=== PATIENT | female | born 1960 | race Caucasian/White ===

== ENCOUNTER 2019-12-19 11:23 | Inpatient (IN) | payer BC ==
[~2019-12-19] VITALS: Ht 162.6 cm; Wt 87.3 kg
[~2019-12-19 11:23] MED LIST: ATIVAN0.5 MG PO; CYCLOBENZAPRINE10 MG PO; Carafate1 GM PO; MAXALT10 MG PO; Motrin,Rufen800 MG PO; NEXIUM40 MG PO; NORCO 5-325 TA1 EACH PO; ROXICET 5-3251 EACH PO
[2019-12-19 11:37] VITALS: BP 151/78
[2019-12-19 12:20] LABS: BASO # 0.1 10*3/uL (0.0-0.1); BASO % 0.5 % (0.0-1.0); EOS # 0.2 10*3/uL (0.0-0.4); EOS % 2.2 % (1.0-4.0); LYMPH # 1.5 10*3/uL (1.3-4.4); LYMPH % 16.2 % (27.0-41.0); MEAN CELL VOLUME 88.7 fl (81.0-99.0); MEAN CORPUSCULAR HGB 28.8 pg (27.0-31.0); MEAN CORPUSCULAR HGB CONC 32.5 g/dl (33.0-37.0); MEAN PLATELET VOLUME 10.2 fl (9.6-12.3); MONO # 0.7 10*3/uL (0.1-1.0); MONO % 7.4 % (3.0-9.0); NEUT # 6.8 10*3/uL (2.3-7.9); NEUT % 73.3 % (47.0-73.0); PLATELET COUNT AUTOMATED 239 10*3/uL (130-400); RED BLOOD COUNT 4.06 10*6/uL (4.10-5.10); RED CELL DISTRI WIDTH 14.1 % (0-14.5); WHITE BLOOD COUNT 9.3 10*3/uL (4.8-10.8)
[2019-12-19 12:31] LABS: ACT PARTIAL THROMBO TIME 27.6 SECONDS (20.0-32.1); INTERNATIONAL NORM RATIO 0.9 (2.0-3.5)
[2019-12-19 12:34] LABS: ALBUMIN 3.3 gm/dl (3.1-4.5); ALKALINE PHOSPHATASE 71 U/L (45-117); BUN 16 mg/dl (7-24); CHLORIDE 111 mmol/L (98-107); CREATININE 0.89 mg/dL (0.55-1.02); POTASSIUM 4.2 mmol/L (3.5-5.1); SGOT/AST 10 IU/L (3-35); SGPT/ALT 21 U/L (12-78); SODIUM 139 mmol/L (136-145); TOTAL PROTEIN 7.2 gm/dL (6.4-8.2)
[2019-12-19 13:30] VITALS: BP 146/60
[2019-12-19 13:57] VITALS: BP 140/74
--- NOTE | 2019-12-19 13:57 | NUR ---
Time: 1356 A 59 year old FEMALE admitted to 5E under services of DR. TANESHA BENAVIDEZ,SHERLYN Cerda Pt. arrived via stretcher from ER. Chief complaint: BREAST ABSCESS PAIN. MARTHA RIVAS
[2019-12-19 14:21] VITALS: BP 140/74
[2019-12-19] MEDS ORDERED: BUPROPION HCL150 M1 PO (15:10)
[2019-12-19 20:00] VITALS: BP 127/56
--- NOTE | 2019-12-19 20:23 | NUR ---
DR ALMENDAREZ NOTIFIED OF PT REQUESTING SLEEPNG MED, ALSO OF PT STATING MOTRIN NOT HELPING PAIN AND UNABLE TO TAKE NORCO PER S/E UPSET STOMACH. NEW ORDERS FOR AMBIEN AND TORADOL REC'D
--- NOTE | 2019-12-19 21:28 | NUR ---
TORADOL GIVEN PER PAIN WITH MOVEMENT R/T BREAST ABSCESS. PT ARM WRAPPED AND AMBULATORY TO SHOWER.
--- NOTE | 2019-12-19 22:00 | NUR ---
PATIENT REPORTS NO PAIN, TORADOL EFFECTIVE
[2019-12-20] VITALS (8 sets, daily range): BP systolic 99–159; BP diastolic 57–99
--- NOTE | 2019-12-20 02:56 | NUR ---
PATIENT CALLED RN INTO ROOM PER ABSCESS DRAINING. RT BREAST ABSCESS FOUND TO HAVE MODERATE AMOUNT OF PURULENT BLOODY DRAINAGE WITH WHITE FLECKS. ABD LOOSELY APPLIED AND PT PROVIDED WITH CLEAN SHEETS & GOWN. PT REPORTS NO PAIN TO AREA AT THIS TIME. CALL LIGHT IN REACH.
--- NOTE | 2019-12-20 05:22 | NUR ---
ALPHONSO CALLE [id number] Please refer to the physician's history and physical for past medical history, comorbid conditions, and allergies. Diagnosis: BREAST ABSCESS Tha Score: 22,LOW OR NO RISK WOUND DESCRIPTIONS: Wound Number: 1 Location of the wound: right breast Type of wound: abscess vs cyst Thickness: Full Size: 0.2cm x 0.4cm x 0.1cm Tunneling: none Undermining: none Sinus Tract: none Presence of Exudate: Serosanguineous Amount: Light Color: Red, yellow Odor: None Periwound Skin Appearance: erythema measures 11.0cm x 27.5cm x 0.1cm Wound edges: approximated Pain (associated with wound): tender at time of assessment How does patient state this happened? pt states she had an encapsulated cyst diagnosis back in [facility] and didnt have any problems until recently and that is what brought her in to the hospital. DSD appilied to right breast pending physician orders. Patient tolerate dressing changes without diffcuilty. Call light within reach and bed in low position. Surface the patient is resting on: Isoflex SKIN PREVENTION RECOMMENDATION: 1. Pressure redistribution support surface as appropriate 2. Elevate heels 3. Remove boots/TEDS every shift and reapply 4. Head of bed 30 degrees as tolerated 5. Assess nutrition and hydration 6. Manage moisture 7. Avoid the use of containment devices while in bed 8. Use absorptive products on surfaces limit layers of linens on bed 9. Turn and reposition every 1-2 hours in bed and every 1 hour in chair as tolerated 10. Weight shifts every 15 minutes while up in chair 11. Offloading with pillows or device to keep heels elevated off bed 12. Monitor skin at least every shift 13. Inspect under medical devices twice a day WOUND TREATMENT RECOMMENDATIONS: Dr. Redd is already on consult. Cleanse right breast with nss and apply dsd daily and prn for soiling. Patient is requesting to follow up in Dr. Redd's office and the wound care center when she is able
[2019-12-20 06:22] LABS: BASO # 0.1 10*3/uL (0.0-0.1); BASO % 0.6 % (0.0-1.0); EOS # 0.3 10*3/uL (0.0-0.4); EOS % 3.1 % (1.0-4.0); HEMATOCRIT 33.3 % (37.0-47.0); LYMPH # 1.9 10*3/uL (1.3-4.4); LYMPH % 22.8 % (27.0-41.0); MEAN CELL VOLUME 88.6 fl (81.0-99.0); MEAN CORPUSCULAR HGB CONC 32.7 g/dl (33.0-37.0); MEAN PLATELET VOLUME 10.2 fl (9.6-12.3); MONO # 0.7 10*3/uL (0.1-1.0); MONO % 8.2 % (3.0-9.0); NEUT # 5.5 10*3/uL (2.3-7.9); NEUT % 65.1 % (47.0-73.0); PLATELET COUNT AUTOMATED 240 10*3/uL (130-400); RED BLOOD COUNT 3.76 10*6/uL (4.10-5.10); RED CELL DISTRI WIDTH 14.2 % (0-14.5); WHITE BLOOD COUNT 8.4 10*3/uL (4.8-10.8)
--- NOTE | 2019-12-20 08:29 | NUR ---
TORADOL GIVEN PER REQUEST FOR C/O R BREAST PAIN. RATES PAIN A 6 OUT OF 10. WILL MONITOR,
--- NOTE | 2019-12-20 09:30 | NUR ---
TORADOL EFFECTIVE PER PT.
--- NOTE | 2019-12-20 14:00 | NUR ---
Late entry. Security System Analyst in to talk to patient. Patient states lives at home with her . There are 0 steps in the home. Physician: Dr. Fortunato Ramon [facility]: [facility] Home health services: none Patient's level of ADLs: INDEPENDENT Patient has working utilities: yes DME: none Follow-up physician's appointment after d/c: she prefers to make her own follow up appt after discharge Does patient want to access PORTAL?: no Discharge plan discussed with patient. She lives at home with her . She states he daughter lives next door and her son lives at the end of the street. She is independent in her ADLs and ambulation. Discussed home health care services and she is agreeable if there are dressing changes. When medically stable she will be discharged to home. She state her will provide transportation on discharge. SUZE KIRBY
--- NOTE | 2019-12-20 14:27 | NUR ---
TORADOL GIVEN FOR C/O RT BREAST PAIN. RATES 7/10 ON PAIN SCALE. WILL MONITOR.
--- NOTE | 2019-12-20 15:29 | NUR ---
TORADOL EFFECTIVE PER PT.
[2019-12-21] VITALS: BP 130/64
[2019-12-21 07:50] LABS: BASO # 0.1 10*3/uL (0.0-0.1); EOS # 0.2 10*3/uL (0.0-0.4); EOS % 3.6 % (1.0-4.0); HEMATOCRIT 33.2 % (37.0-47.0); LYMPH # 1.9 10*3/uL (1.3-4.4); LYMPH % 27.7 % (27.0-41.0); MEAN CORPUSCULAR HGB CONC 31.9 g/dl (33.0-37.0); MEAN PLATELET VOLUME 10.5 fl (9.6-12.3); MONO # 0.6 10*3/uL (0.1-1.0); MONO % 8.4 % (3.0-9.0); NEUT # 3.9 10*3/uL (2.3-7.9); PLATELET COUNT AUTOMATED 243 10*3/uL (130-400); RED BLOOD COUNT 3.65 10*6/uL (4.10-5.10); WHITE BLOOD COUNT 6.7 10*3/uL (4.8-10.8)
--- NOTE | 2019-12-21 07:50 | NUR ---
ASSESSMENT COMPLETE AT THIS TIME WITH NO INCIDENCE. PT STATES SHE DOES NOT WANT TO TAKE THE MOTRIN BECAUSE IT MAKES HER STOMACH SICK. SHE DOES NOT HAVE ANY OTHER COMPLAINTS AT THIS TIME. CALL LIGHT WITHIN REACH, WILL CONTINUE TO MONITOR
[2019-12-21 08:00] VITALS: BP 125/55
--- NOTE | 2019-12-21 08:49 | NUR ---
Spoke with Dr. Redd regarding follow up in the wound care center. Dr. Redd states that he will see patient in his office.
--- NOTE | 2019-12-21 10:40 | NUR ---
Nurse Liaison in to see patient. No new needs or request at this time. Discussed home health care services and dressing changes at home and she states her can pull the packing out of her breast and apply new dressings if needed. She denies a need for home health at this time. When medically stable she will be discharged to home. Discharge planning discussed with Dr. Bolivar. Dr. Bolivar awaiting clearance from Dr. Redd for discharge. Patient waiting for Dr. Redd as she has questions regarding the surgery and post op plan.
[2019-12-21 12:00] VITALS: BP 137/75
--- NOTE | 2019-12-21 12:06 | NUR ---
PT COMPLAINTS OF PAIN IN RIGHT BREAST RATING IT A 3/10. PRN TORADOL IV GIVEN. WILL MONITOR FOR EFFECTIVENESS
--- NOTE | 2019-12-21 13:00 | NUR ---
PT STATES THAT TORADOL IS EFFECTIVE. WILL CONTINUE TO MONITOR
[2019-12-21 16:00] VITALS: BP 111/58
--- NOTE | 2019-12-21 16:05 | NUR ---
Nutritional Support Services Note: Pt is eating 100% of meals. Regular diet as ordered. Right breast wound. No other nutrition intervention needed at this time. Encouraged good intake of meals and fluids. Will follow if needed. Brooklyn Lea Rdn Ld
--- NOTE | 2019-12-21 18:14 | NUR ---
PRN TORADOL IV GIVEN FOR PAIN. WILL MONITOR
--- NOTE | 2019-12-21 19:20 | NUR ---
REPORT RECEIVED. PT WATCHING TV. NO COMPLAINTS VOICED. CALL LIGHT IN REACH
[2019-12-21 20:00] VITALS: BP 151/77
--- NOTE | 2019-12-21 23:00 | NUR ---
PT LYING IN BED WATCHING TV. NO COMPLAINTS, CALL LIGHT IN REACH
--- NOTE | 2019-12-21 23:55 | NUR ---
TORADOL GIVEN FOR COMPLAINTS OF RIGHT BREAST PAIN. WILL MONITOR
--- NOTE | 2019-12-21 23:57 | NUR ---
KIRANIEN GIVEN PER ORDER FOR COMPLAINTS OF INSOMNIA. WILL MONITOR
[2019-12-22] VITALS: BP 152/83
--- NOTE | 2019-12-22 00:50 | NUR ---
AMBIEN AND TORADOL APPEAR EFFECTIVE. PT ASLEEP AT THIS TIME
--- NOTE | 2019-12-22 06:03 | NUR ---
BENADRYL GIVEN PER ORDER FOR COMPLAINTS OF ITCHING AT SURGERY SITE. WILL MONITOR
[2019-12-22 06:46] LABS: BASO # 0.1 10*3/uL (0.0-0.1); BASO % 0.8 % (0.0-1.0); EOS # 0.3 10*3/uL (0.0-0.4); EOS % 3.7 % (1.0-4.0); HEMATOCRIT 33.7 % (37.0-47.0); LYMPH # 2.4 10*3/uL (1.3-4.4); LYMPH % 32.6 % (27.0-41.0); MEAN CELL VOLUME 89.9 fl (81.0-99.0); MEAN CORPUSCULAR HGB 28.8 pg (27.0-31.0); MEAN PLATELET VOLUME 10.2 fl (9.6-12.3); MONO # 0.6 10*3/uL (0.1-1.0); MONO % 8.6 % (3.0-9.0); PLATELET COUNT AUTOMATED 244 10*3/uL (130-400); RED BLOOD COUNT 3.75 10*6/uL (4.10-5.10); RED CELL DISTRI WIDTH 13.9 % (0-14.5); WHITE BLOOD COUNT 7.3 10*3/uL (4.8-10.8)
--- NOTE | 2019-12-22 06:55 | NUR ---
BENADRYL EFFECTIVE FOR ITCHING PER PT
--- NOTE | 2019-12-22 07:25 | NUR ---
[facility] RN ON FLOOR AND STATES THAT WHEN THIS PATIENT IS DISCHARGED MAKE SURE TO NOT THAT THE WOUND WAS NOT VISUALIZED PER DR RODRIGUEZ AND TO FOLLOW UP WITH HIM OUTPATIENT
[2019-12-22 08:00] VITALS: BP 126/77
--- NOTE | 2019-12-22 08:50 | NUR ---
ASSESSMENT COMPLETE. PT WAS SLEEPING AND WAKES EASILY. SHE STATES SHE IS DROWSY FROM THE BENADRYL THAT SHE WAS GIVEN THIS MORNING. SHE COMPLAINS OF ITCHING TO HER RIGHT BREAST. CALL LIGHT IS WITHIN HER REACH, WILL CONTINUE TO MONITOR
--- NOTE | 2019-12-22 09:30 | NUR ---
Auto Claim Representative in to see patient. No new needs or request at this time. She denies any home needs. She is awaiting to see if she is going to be discharged today. When medically stable she will be discharged to home.
[2019-12-22 12:00] VITALS: BP 160/68
--- NOTE | 2019-12-22 12:04 | NUR ---
SPOKE TO DR ALMENDAREZ PER PT REQUEST OF WANTING SOMETHING TO STOP DIARRHEA, WILL ADD ORDERS
--- NOTE | 2019-12-22 12:46 | NUR ---
ATTEMPTED TO CALL DR RODRIGUEZ, NO ANSWER. WILL TRY BACK
--- NOTE | 2019-12-22 13:01 | NUR ---
SPOKE TO DR RODRIGUEZ ON THE PHONE HE STATES THE PATIENT IS FINE ON HIS PART TO BE DISCHARGED, HE JUST WANTS HER TO FOLLOW UP IN THE OFFICE WITH HIM NEXT WEEK. DR ALMENDAREZ ON THE PHONE AND STATES THAT THE PATIENT WILL BE DISCHARGED TOMORROW WHEN HE IS IN THE HOSPTIAL
--- NOTE | 2019-12-22 14:30 | NUR ---
PRN TORADOL EFFECTIVE
--- NOTE | 2019-12-22 15:38 | NUR ---
PRN TORADOL IV GIVEN FOR COMPLAINTS OF PAIN IN THE RIGHT BREAST
[2019-12-22 16:00] VITALS: BP 149/71
--- NOTE | 2019-12-22 19:00 | NUR ---
REPORT RECEIVED FROM CADY ROBLES. PT RESTING IN BED AT THIS TIME. VOCIES NO COMPLAINTS, CALL LIGHT IN REACH
[2019-12-22 20:00] VITALS: BP 137/73
--- NOTE | 2019-12-22 21:00 | NUR ---
PT WATCHING TV AT THIS TIME. NO S/S OF DISTRESS. CALL LIGHT IN REACH
--- NOTE | 2019-12-22 22:46 | NUR ---
TORADOL GIVEN FOR 910 R BREAST PAIN. AMBIEN ALSO GIVEN PER ORDER FOR COMPLAINTS OF INSOMNIA. WILL MONITOR
--- NOTE | 2019-12-22 23:40 | NUR ---
AMBIEN AND TORADOL APPEAR EFFECTIVE, PT ASLEEP
[2019-12-23] VITALS: BP 171/86
--- NOTE | 2019-12-23 05:59 | NUR ---
BENADRYL AND TORADOL GIVEN PER ORDER FOR COMPLAINTS OF PAIN AND ITCHING IN R BREAST. WILL MONITOR.
--- NOTE | 2019-12-23 06:58 | NUR ---
PER PT, TORADOL EFFECTIVE FOR PAIN AND BENADRYL HELPED THE ITCHING
--- NOTE | 2019-12-23 07:51 | NUR ---
Spoke with Dr. Redd regarding post op dressing change. He states he thought patient was d/c yesterday he will be up later this morning to change dressing Tamiko RN caring for patient notified. He states all I&D dressings should have packing removed in 72 hours and dsd appilied and follow made in office.
[2019-12-23 08:00] VITALS: BP 149/89
--- NOTE | 2019-12-23 09:40 | NUR ---
Discussed discharge planning with Dr. Redd. Patient is stable and ready for discharge. Dr. Bolivar notified.
[2019-12-23] MEDS ORDERED: AUGMENTIN 875-875 MG PO (10:07)
--- NOTE | 2019-12-23 11:12 | NUR ---
IV REMOVED, PT AWARE DISCHARGE HOME TODAY.
--- NOTE | 2019-12-23 11:59 | NUR ---
Discharge instructions reviewed with patient. Patient receptive and verbalizes understanding. Follow-up care understood. Written instructions given to patient. pt has no questions on discharge. decline wheelchair SHERIN PRATHER
== END 2019-12-23 11:38 | disposition home or self-care (01) | DRG 585 ==
LOC: ED 11:23 → 5E 12:57 → EDHOLD 12:57 → 5E 13:24
PROVIDERS: Family Medicine; Surgery; ADMIT Internal Medicine
PROC: 0H9T0ZZ Drainage of Right Breast, Open Approach (ICD-10-PCS; principal; 2019-12-20)
DX: N61.1 Abscess of the breast and nipple (principal); Z68.33 Body mass index [BMI] 33.0-33.9, adult; F41.1 Generalized anxiety disorder; K21.0 Gastro-esophageal reflux disease with esophagitis; E66.9 Obesity, unspecified; Z71.3 Dietary counseling and surveillance

== ENCOUNTER → 2020-01-11 | Outpatient (CLI) | payer BC ==
[~2020-01-11] MED LIST changes: +AUGMENTIN 875-875 MG PO; +BUPROPION HCL150 M1 PO
== END | disposition home or self-care (01) ==
LOC: COVID19 00:12
DX: Z01.818 Encounter for other preprocedural examination (principal); Z11.59 Encounter for screening for other viral diseases

== ENCOUNTER → 2020-01-16 | Day surgery (SDC) | payer BC ==
[~2020-01-16] VITALS: Ht 160 cm; Wt 81.6 kg
[2020-01-16 07:59] VITALS: BP 164/87
[2020-01-16 09:32] VITALS: BP 143/72
[2020-01-16 09:47] VITALS: BP 150/86
[2020-01-16 10:12] VITALS: BP 150/82
== END | disposition home or self-care (01) ==
LOC: SDC 01-12 09:30
DX: N63.10 Unspecified lump in the right breast, unspecified quadrant (principal); N61.1 Abscess of the breast and nipple; I10 Essential (primary) hypertension; G43.909 Migraine, unspecified, not intractable, without status migrainosus; F32.9 Major depressive disorder, single episode, unspecified; E66.9 Obesity, unspecified; Z98.890 Other specified postprocedural states; Z79.899 Other long term (current) drug therapy; Z87.891 Personal history of nicotine dependence; Z68.31 Body mass index [BMI] 31.0-31.9, adult

== ENCOUNTER 2021-06-08 17:41 | Emergency (ER) | payer BC ==
[2021-06-08 17:48] VITALS: BP 147/85
== END 2021-06-08 20:20 | disposition home or self-care (01) ==
LOC: ED 17:41
DX: U07.1 COVID-19 (principal); Z79.899 Other long term (current) drug therapy; Z98.890 Other specified postprocedural states

== ENCOUNTER → 2022-08-27 | Outpatient (CLI) | payer BC | END | disposition home or self-care (01) | LOC: LAB 13:36 | PROVIDERS: ATTEND Nurse Practitioner Women's Health | DX: Z03.89 Encounter for observation for other suspected diseases and conditions ruled out (principal); Z80.3 Family history of malignant neoplasm of breast ==

== ENCOUNTER 2025-01-24 06:27 | Emergency (ER) | payer BC ==
[~2025-01-24] VITALS: Ht 160 cm; Wt 72.6 kg
[2025-01-24 06:42] VITALS: BP 121/70
[2025-01-24 07:02] LABS: BASO # 0.0 10*3/uL (0.0-0.1); BASO % 0.2 % (0.0-1.0); EOS # 0.1 10*3/uL (0.0-0.4); EOS % 1.4 % (1.0-4.0); MEAN CELL VOLUME 89.5 fl (81.0-99.0); MEAN CORPUSCULAR HGB 30.1 pg (27.0-31.0); MEAN PLATELET VOLUME 9.9 fl (9.6-12.3); MONO # 0.8 10*3/uL (0.1-1.0); MONO % 8.2 % (3.0-9.0); NEUT # 7.6 10*3/uL (2.3-7.9); NEUT % 76.5 % (47.0-73.0); NUCLEATED RED BLOOD CELL 0.0 % (0.0-0.0); NUCLEATED RED BLOOD CELL 0.0 10*3/uL (0.0-0.0); PLATELET COUNT AUTOMATED 294 10*3/uL (130-400); RED CELL DISTRI WIDTH 12.8 % (0-14.5)
[2025-01-24] MEDS ORDERED: SODIUM CHLORIDE 0.9% 1,000 ML IV ONE (07:20)
[2025-01-24 07:33] LABS: BUN 11 mg/dl (9-23); SGPT/ALT 9 U/L (5-49)
[2025-01-24] MEDS ORDERED: Atropine Sulfate/Diphenoxyla 1 TAB TAB PO ONE (07:50)
[2025-01-24] MEDS ORDERED: CIPRO500 MG PO (07:50)
== END 2025-01-24 08:16 | disposition home or self-care (01) ==
LOC: ED 06:27
PROVIDERS: Internal Medicine
DX: R19.7 Diarrhea, unspecified (principal); R11.0 Nausea; F32.A Depression, unspecified; G43.909 Migraine, unspecified, not intractable, without status migrainosus; Z98.890 Other specified postprocedural states

== ENCOUNTER 2025-05-05 10:57 | Emergency (ER) | payer BC ==
[~2025-05-05] VITALS: Ht 162.5 cm; Wt 75.7 kg
[~2025-05-05 10:57] MED LIST changes: +CIPRO500 MG PO
[2025-05-05 11:09] VITALS: BP 147/90
[2025-05-05] MEDS ORDERED: SODIUM CHLORIDE 0.9% 1,000 ML IV ONE (11:40)
[2025-05-05] MEDS ORDERED: Ondansetron Hydrochloride 4 MG/2 ML VIAL IV ONE (11:40)
[2025-05-05 11:57] LABS: BASO # 0.0 10*3/uL (0.0-0.1); BASO % 0.3 % (0.0-1.0); EOS # 0.2 10*3/uL (0.0-0.4); EOS % 1.3 % (1.0-4.0); MEAN CELL VOLUME 89.1 fl (81.0-99.0); MEAN CORPUSCULAR HGB 29.1 pg (27.0-31.0); MEAN PLATELET VOLUME 9.7 fl (9.6-12.3); MONO # 0.6 10*3/uL (0.1-1.0); MONO % 5.2 % (3.0-9.0); NEUT # 10.1 10*3/uL (2.3-7.9); NEUT % 88.1 % (47.0-73.0); NUCLEATED RED BLOOD CELL 0.0 % (0.0-0.0); NUCLEATED RED BLOOD CELL 0.0 10*3/uL (0.0-0.0); PLATELET COUNT AUTOMATED 251 10*3/uL (130-400); RED CELL DISTRI WIDTH 13.0 % (0-14.5)
[2025-05-05 12:17] LABS: BUN 19 mg/dl (9-23); SGPT/ALT 14 U/L (5-49)
[2025-05-05] MEDS ORDERED: Ondansetron4 MG PO (13:23)
== END 2025-05-05 13:30 | disposition home or self-care (01) ==
LOC: ED 10:57
PROVIDERS: Nurse Practitioner Family
DX: A05.9 Bacterial foodborne intoxication, unspecified (principal); F32.A Depression, unspecified; G43.909 Migraine, unspecified, not intractable, without status migrainosus; Z98.890 Other specified postprocedural states